=== PATIENT | male | born 1990 | race African-American/Black ===

== ENCOUNTER 2018-04-24 23:43 | Emergency (ER) | payer OTHER ==
[~2018-04-24] VITALS: Ht 172.7 cm; Wt 73.0 kg
[2018-04-25] MEDS ORDERED: IBUPROFEN 600MG TABLET PO ONE (01:00)
[2018-04-25 01:19] VITALS: BP 120/80
== END 2018-04-25 01:25 | disposition home or self-care (01) ==
LOC: ER 04-25 00:28
DX: K05.00 Acute gingivitis, plaque induced (principal); K08.89 Other specified disorders of teeth and supporting structures; F17.210 Nicotine dependence, cigarettes, uncomplicated; J45.909 Unspecified asthma, uncomplicated
CPT/HCPCS: 99283